=== PATIENT | female | born 1960 | race Caucasian/White ===

== ENCOUNTER 2021-11-29 15:09 | Outpatient (REF) | payer BC, SELFPAY | END 2021-11-29 15:10 | disposition home or self-care (01) | LOC: LBN 15:09 | PROVIDERS: Visit Provider Nurse Practitioner Family | DX: R35.0 Frequency of micturition (principal) | CPT/HCPCS: 87086 ==

== ENCOUNTER 2022-02-15 09:28 | Emergency (ER) | payer BC, SELFPAY ==
[2022-02-15 09:41] VITALS: BP 161/94; PULSE 85; RESP 18; TEMP 36.6; O2SAT 97
[2022-02-15] MEDS: Cellulose,Oxidized 2X3 PKT 1 EACH MC (09:57)
--- NOTE | 2022-02-15 10:14 | ED.GENADUL_ITS ---
Discharge Plan Disposition Patient Disposition: HOME Condition: Stable Discharge Details Clinical Impression: Avulsion of finger Primary Care Provider: Annita,Local ED Provider: Lorene Okeefe Home Meds and New Rx's Prescriptions: No Action No Known Home Meds Discharge Instructions Additional Instructions: Keep dressing on for 3 days You may soak but would refrain for at least 3 days 10 elevated much as possible Keep a compressive dressing on Should you develop numbness or tingling in her fingertips you should loosen the dressing Discharge Data Discharge Date/Time-TO BE ENTERED AT DEPARTURE: 02/15/22 11:16 Medical Decision Making Wound cleansed, Surgicel applied, pressure dressing applied Tetanus updated Coagulation achieved after Surgicel and repeat pressure dressing, patient made aware regarding dressing changes, placed on PCP list for follow-up Ibuprofen and Tylenol as needed for pain Infection signs and symptoms reviewed Return precautions discussed and patient expressed understanding Medical Records Medical records reviewed: Yes I reviewed the patient's medical records. Lab Data Lab results reviewed: Yes I reviewed the patient's lab results. HPI General Date/Time Provider Initiated Documentation: 02/15/22 09:43 . HPI Narrative: This 61-year-old female presents with laceration to her left index finger. She reportedly had just sharpened a knife and accidentally cut the tip of the finger. Unsure regarding tetanus. Denies any additional injuries. The event occurred just prior to arrival. She describes a sharp stinging pain. Related Data Home Medications Medication Instructions Recorded Confirmed Unknown [No Known Home Meds] 06/14/17 06/14/17 Allergies Allergy/AdvReac Type Severity Reaction Status Date / Time No Known Allergies Allergy Unverified 02/15/22 09:46 General Stated Complaint: Laceration JOHNY: 4 Review of Systems Narrative: Review of systems obtained x3 and negative aside from indication in HPI PFSH All Active Problems (Updated 02/15/22 @ 10:53 by BETTY Simmons) Avulsion of finger (Acute) Social History Smoking/Tobacco Use Status: Never Smoking risk assessment performed?: Yes Alcohol Intake: never Substance use type: does not use Do you feel safe in your relationship?: Yes Exam Const General: cooperative, comfortable and no acute distress Extrem Other: Avulsion to the tip of left index finger, small bleeding arterial no visible bone Course Vital Signs Vital signs: Vital Signs Temperature 36.6 C 02/15/22 09:41 Pulse 85 10/09/22 09:41 Respiratory Rate 18 02/15/22 09:41 Blood Pressure 161/94 H 02/15/22 09:41 Pulse Oximetry 97 02/15/22 09:41 Temperature 36.6 C 02/15/22 09:41 Temperature Source Skin 02/15/22 09:41 Pulse 85 02/15/22 09:41 Respiratory Rate 18 02/15/22 09:41 Respiratory Effort 02/15/22 09:46 Blood Pressure 161/94 H 02/15/22 09:41 Blood Pressure Position Sitting 02/15/22 09:41 Pulse Oximetry 97 02/15/22 09:41 Oxygen Delivery Method Room Air 02/15/22 09:41 Oxygen Flow Rate 0 02/15/22 09:41 Pain Level 8 02/15/22 09:41
== END 2022-02-15 11:16 | disposition home or self-care (01) ==
PROVIDERS: Emergency Provider Physician Assistant
DX: S61.201A Unspecified open wound of left index finger without damage to nail, initial encounter (principal); Z23 Encounter for immunization; W26.0XXA Contact with knife, initial encounter
CPT/HCPCS: 90471; 99281; 99282

== ENCOUNTER 2023-04-22 22:32 | Outpatient (REF) | payer BC, SELFPAY | END 2023-04-22 22:33 | disposition home or self-care (01) | LOC: LBN 22:32 | PROVIDERS: Visit Provider Physician Assistant Medical | DX: R30.0 Dysuria (principal) | CPT/HCPCS: 87086 ==

== ENCOUNTER 2023-10-20 07:58 | Emergency (ER) | payer OTHER, SELFPAY ==
[2023-10-20 08:01] VITALS: BP 191/85; PULSE 88; RESP 18; TEMP 36.5; O2SAT 98
--- NOTE | 2023-10-20 08:12 | W.ED.GENAD ---
Discharge Plan Disposition Patient Disposition: Home Condition: Stable Discharge Details Clinical Impression: Chest wall contusion, Fall Primary Care Provider: Unknown,Unknown ED Provider: Lenora Kim Home Meds and New Rx's Prescriptions: No Action No Known Home Meds Discharge Instructions Instructions: Preventing falls in adults, Minor Contusion ED Additional Instructions: At this time no evidence of rib fractures or broken bones. No evidence of collapsed lung. I do suspect you will be sore for the next couple of days. Please return to the ER for any worsening shortness of breath, productive cough, fever or concerns. Please take Tylenol or Ibuprofen with food every 4-6 hours as needed for pain and swelling. You may apply ice to the bruised area. Follow up with primary care provider in 6-10 days. Return to ED sooner if any worsening or concerns. Stand Alone Forms: Work Release Discharge Data Discharge Date/Time-TO BE ENTERED AT DEPARTURE: 10/20/23 10:10 HPI General Mode of arrival: ambulatory. Date/Time Provider Initiated Documentation: 10/20/23 08:04. Limitations to Documentation: no limitations. Information obtained by: patient, RN notes reviewed and old records reviewed. HPI Narrative: 63-year-old female presents to the ER with chief complaint of right anterior rib pain status post mechanical fall on Wednesday 2 days ago. She tripped on a cord denies hitting her head no loss of conscious no neck pain, does have some bruising noted to her right upper arm. She does have full range of motion. Denies any other associated symptoms or concerns. Did take half an Advil last night to help her sleep. Does not take any aspirin or any other anticoagulation. Related Data Home Medications Medication Instructions Recorded Confirmed Unknown [No Known Home Meds] 06/14/17 10/20/23 Allergies Allergy/AdvReac Type Severity Reaction Status Date / Time No Known Allergies Allergy Unverified 10/20/23 08:03 General Stated Complaint: Chest/Rib JOHNY: 4 Review of Systems All systems reviewed & are unremarkable except as noted in HPI and below ENT Ears, Nose, Mouth, and Throat: Denies neck pain Cardiovascular Cardiovascular: Reports as per HPI, Denies syncope and Denies pedal edema Musculoskeletal Musculoskeletal: Reports as per HPI and Denies neck pain Neurologic Neurologic: Denies syncope Exam Narrative Exam Narrative: General: Well Developed, Awake and Alert, conversant. Skin: Warm and Dry HEENT: Head: Normocephalic Eyes: Pupils PERRLA Nose/Face: Atraumatic. Neck: No midline tenderness, no step off, no deformity to palpation of C-spine. Trachea midline. Chest: No surface trauma. Lungs clear to ausculatation bilaterally. Heart: RRR, no rubs, murmurs or gallop. Extremities: Sensation intact. Peripheral pulses intact and equal. Neuro: ANO x4, GCS 15, Motor and sensory exam nonfocal. Course Vital Signs Vital signs: Vital Signs Temperature 36.5 C 10/20/23 08:01 Pulse 88 10/20/23 08:01 Respiratory Rate 18 10/20/23 08:01 Blood Pressure 191/85 H 10/20/23 08:01 Pulse Oximetry 98 10/20/23 08:01 Temperature 36.5 C 10/20/23 08:01 Temperature Source Skin 10/20/23 08:01 Pulse 88 10/20/23 08:01 Respiratory Rate 18 10/20/23 08:01 Respiratory Effort Normal, Non-Labored 10/20/23 08:04 Blood Pressure 191/85 H 10/20/23 08:01 Blood Pressure Position Sitting 10/20/23 08:01 Pulse Oximetry 98 10/20/23 08:01 Oxygen Delivery Method Room Air 10/20/23 08:01 Oxygen Flow Rate 0 10/20/23 08:01 Pain Level 8 10/20/23 08:01 Medical Decision Making 63-year-old female presents to the ER with chief complaint of right anterior rib pain status post mechanical fall on Wednesday 2 days ago. She tripped on a cord denies hitting her head no loss of conscious no neck pain, does have some bruising noted to her right upper arm. She does have full range of motion. Denies any other associated symptoms or concerns. Did take half an Advil last night to help her sleep. Does not take any aspirin or any other anticoagulation. X-ray AP, PA chest and right rib series ordered. Right upper arm deferred due to full range of motion and no crepitus with palpation. X-ray shows no evidence of Acute bony, cardiopulmonary abnormality. Please see official report. Upon patient reevaluation I discussed home care, strict return instructions, she verbalized understanding. Discussed lidocaine patches which she can get [id number]. Patient was discharged in hemodynamically stable condition, alert and oriented ambulatory blood remained stable throughout her stay here. Improved This text was generated using [employer] ([employer]) dictation system, please disregard any oddities of phrase or misspellings. Imaging Data Radiologic Study: Imaging: X-Ray Radiologist's impression: EXAM: XR RIBS RT W PA LAT CHEST CLINICAL HISTORY: Right Rib pain, fall TECHNIQUE: 2D digital imaging was performed. COMPARISON: No exams were available for comparison FINDINGS: RIBS 4 VIEWS-RIGHT There are no obvious acute rib fractures evident. No lytic rib lesions identified. CXR- 2 VIEWS: No lung contusion or pneumothorax. There is no pleural effusion evident. Heart size is normal and there is no significant mediastinal widening. IMPRESSION: 1. No obvious rib fractures evident. Also no significant rib lesions. 2. No ipsilateral lung nor pleural abnormality evident. No pneumothorax. Lungs are clear bilaterally. Quality:SDOH Health Related Social Needs: No Data to Display PFSH All Active Problems (Updated 10/20/23 @ 10:02 by Lenora Kim NP) Fall (Acute) Chest wall contusion (Acute) Social History Smoking/Tobacco Use Status: Never Smoking risk assessment performed?: Yes Alcohol Intake: never Substance use type: does not use Do you feel safe in your relationship?: Yes
--- NOTE | 2023-10-20 08:36 | DI.RAD_ITS ---
Exam(s) XR RIBS RT W PA LAT CHEST EXAM: XR RIBS RT W PA LAT CHEST CLINICAL HISTORY: Right Rib pain, fall TECHNIQUE: 2D digital imaging was performed. COMPARISON: No exams were available for comparison FINDINGS: RIBS 4 VIEWS-RIGHT There are no obvious acute rib fractures evident. No lytic rib lesions identified. CXR- 2 VIEWS: No lung contusion or pneumothorax. There is no pleural effusion evident. Heart size is normal and there is no significant mediastinal widening. IMPRESSION: 1. No obvious rib fractures evident. Also no significant rib lesions. 2. No ipsilateral lung nor pleural abnormality evident. No pneumothorax. Lungs are clear bilaterally. DATA REPOSITORY: RADIATION DOSE DELIVERED:
[2023-10-20] MEDS: Lidocaine 5% Patch 1 PATCH TP (10:09)
--- NOTE | 2023-10-20 10:09 | NUR.NOTE ---
Referral faxed to [facility] Alejo Berger on for telephone call; needs PCP, establish care, ED follow up, rib contusion in 6 to 10 days. Nursing Note:
== END 2023-10-20 10:10 | disposition home or self-care (01) ==
PROVIDERS: Emergency Provider Registered Nurse Emergency
DX: S20.211A Contusion of right front wall of thorax, initial encounter (principal); W01.0XXA Fall on same level from slipping, tripping and stumbling without subsequent striking against object, initial encounter; Y93.01 Activity, walking, marching and hiking; Y92.019 Unspecified place in single-family (private) house as the place of occurrence of the external cause
CPT/HCPCS: 99283; 71046; 71100